=== PATIENT | female | born 2005 | race Caucasian/White ===

== ENCOUNTER 2024-02-21 06:13 | Outpatient (REF) | payer OTHER, SELFPAY ==
--- NOTE | ~2024-02-21 | US_ITS ---
EXAMINATION: US PELVIS CLINICAL INFORMATION: Irregular bleeding. COMPARISON: None available. TECHNIQUE: Ultrasound of the pelvis is performed using both transabdominal and transvaginal transducers along with Doppler. Transvaginal imaging is performed due to inadequate visualization transabdominally. FINDINGS: Uterus: The uterus is anteverted and measures 7.0 x 3.7 x 3.9 cm. The double wall endometrial thickness is 7 mm. The uterus is smooth in contour and has normal myometrial echogenicity. No visible fibroid. Adnexa: Both ovaries are visualized. There is normal color flow to the adnexa. There is no ovarian torsion. There is no pelvic ascites or fluid collection. Right ovary measures 2.6 x 2.3 x 2.0 cm. Estimated volume measures 6 mL Left ovary measures 2.8 x 2.3 x 1.8 cm. Estimated volume is 6 mL US/US pelvic and transvaginal IMPRESSION: Normal transabdominal and transvaginal pelvic ultrasound examinations. Electronically signed by: Jv Jacobson MD 02/21/2024 01:34 PM EDT
== END 2024-02-21 06:14 | disposition home or self-care (01) ==
LOC: HO.UMASIMG 06:13
PROVIDERS: Visit Provider Nurse Practitioner Women's Health
DX: N92.6 Irregular menstruation, unspecified (principal); N76.0 Acute vaginitis
CPT/HCPCS: 76830; 76856